=== PATIENT | female | born 1970 | race Caucasian/White ===

== ENCOUNTER 2017-02-23 19:57 | Emergency (ER) | payer SELFPAY ==
[2017-02-23 22:27] VITALS: BP 104/77
== END 2017-02-23 22:43 | disposition home or self-care (01) ==
LOC: ED 19:57
DX: J45.901 Unspecified asthma with (acute) exacerbation (principal); J06.9 Acute upper respiratory infection, unspecified; Z79.899 Other long term (current) drug therapy
CPT/HCPCS: J7613